=== PATIENT | male | born 1985 | race Caucasian/White ===

== ENCOUNTER 2017-08-20 12:12 | Emergency (ER) | payer OTHER ==
[2017-08-20 13:16] VITALS: BP 129/84
--- NOTE | 2017-08-20 13:47 | UC ---
Syncope/New Syncope HPI - HPI Summary HPI Summary: has had a few episodes of near syncope and then yesterday had a true syncopal episode-last week had chest pain came on and resolved spontaneously seems to have been worse with deep breathing--- - History Of Current Complaint Chief Complaint: UCDizziness Stated Complaint: FAITING SPELLS Time Seen by Provider: 08/20/17 13:38 Hx Obtained From: Patient Onset/Duration: Sudden Onset, Lasting Days Activity At Onset: Unknown Timing: Intermittent Episode Lasting Frequency: Episodes x___, Ongoing Incidents Of Syncope For (in Mins/Days/Weeks/ Years) - 1 week Context: Witnessed Associated Head Trauma: No Pain Intensity: 0 Aggravating Factor(s): Nothing Alleviating Factor(s): Nothing Associated Signs And Symptoms: Positive: Chest Pain, Numbness - Allergies/Home Medications Allergies/Adverse Reactions: Allergies Allergy/AdvReac Type Severity Reaction Status Date / Time No Known Allergies Allergy Verified 08/20/17 13:16 Home Medications: Home Medications Acetaminophen [Tylenol] 650 mg PO 08/20/17 [History] PMH/Surg Hx/FS Hx/Imm Hx Previously Healthy: Yes - Surgical History Surgical History: None - Family History Known Family History: Positive: Cardiac Disease Family History: early deaths ages 50-65, medical history not complete due to families holiness preferences - Social History Occupation: Employed Full-time - senior sous chef at [employer] Lives: With Family Alcohol Use: Daily Substance Use Type: None Smoking Status (MU): Light Every Day Tobacco Smoker Type: Cigarettes Review of Systems Constitutional: Negative Skin: Negative Eyes: Negative ENT: Negative Respiratory: Negative Cardiovascular: Chest Pain, Other - syncope Gastrointestinal: Negative Genitourinary: Negative Motor: Negative Neurovascular: Negative Musculoskeletal: Negative Neurological: Numbness, Other - syncope Psychological: Negative Is Patient Immunocompromised?: No All Other Systems Reviewed And Are Negative: Yes Physical Exam Triage Information Reviewed: Yes Appearance: Well-Appearing, No Pain Distress, Well-Nourished Vital Signs: Initial Vital Signs Temp 97.9 F 08/20/17 13:12 Pulse 72 08/20/17 13:12 Resp 18 08/20/17 13:12 BP 129/84 08/20/17 13:12 Pulse Ox 100 08/20/17 13:12 Vital Signs Reviewed: Yes Eye Exam: Normal Eyes: Positive: Conjunctiva Clear, Other: - perrla, eomi ENT Exam: Normal ENT: Positive: Normal ENT inspection, Hearing grossly normal, Pharynx normal, TMs normal. Negative: Nasal congestion, Tonsillar swelling, Tonsillar exudate, Trismus, Muffled voice, Hoarse voice, Dental tenderness, Sinus tenderness, Uvula midline Dental Exam: Normal Neck exam: Normal Neck: Positive: Supple, Nontender, No Lymphadenopathy Respiratory Exam: Normal Respiratory: Positive: Chest non-tender, Lungs clear, Normal breath sounds, No respiratory distress, No accessory muscle use Cardiovascular Exam: Normal Cardiovascular: Positive: RRR, No Murmur, Pulses Normal, Brisk Capillary Refill Abdominal Exam: Normal Abdomen Description: Positive: Nontender, No Organomegaly, Soft. Negative: CVA Tenderness (R), CVA Tenderness (L) Bowel Sounds: Positive: Present Musculoskeletal Exam: Normal Musculoskeletal: Positive: Strength Intact, ROM Intact, No Edema Neurological Exam: Normal Neurological: Positive: Alert, Muscle Tone Normal Psychological Exam: Normal Skin Exam: Normal Diagnostics - EKG Cardiac Rate: NL Cardiac Rhythm: Sinus: Normal Ectopy: None ST Segment: Non-Specific - elevations likey early repol- Syncope Course/Dx - Course Course Of Treatment: directly to emergecy department for further evaluation and higher level of care - Differential Dx/Diagnosis Provider Diagnoses: Syncope Discharge - Discharge Plan Condition: Good Disposition: OTHER Discharge Disposition Comment: by private car with GF driving to emergency department Patient Education Materials: Syncope (ED) Referrals: Leti Vann [Primary Care Provider] - Additional Instructions: We are discharging you to go directly to the hospital for further evaluation and comprehensive assesment and treatment planning
== END 2017-08-20 14:00 ==
LOC: UCEAST 12:12
DX: R55 Syncope and collapse (principal); R07.89 Other chest pain; R20.0 Anesthesia of skin; F17.210 Nicotine dependence, cigarettes, uncomplicated
CPT/HCPCS: 93005; 99201; G0463

== ENCOUNTER 2017-08-20 14:21 | Emergency (ER) | payer OTHER ==
[2017-08-20] MEDS ORDERED: Meclizine TAB* 12.5 MG PO ONE (15:29)
[2017-08-20] MEDS ORDERED: Thiamine IV* 100 MG, Folic Acid IV* 1 MG, Multiple Vitamin IV ADULT* 10 ML in NS 0.9% 1... IV ONE (15:29)
[2017-08-20 15:53] LABS: ABS Basophils 0 10^3/ul (0-0.2); ABS Eosinophils 0 10^3/ul (0-0.6); ABS Lymphocytes 1.4 10^3/ul (1.0-4.8); ABS Monocytes 0.3 10^3/ul (0-0.8); ABS Neutrophils 3.9 10^3/ul (1.5-7.7); ABS Nucleated RBC 0 10^3/ul; Eosinophil % 0.7 % (0-6); Hematocrit 46 % (42-52); Hemoglobin 15.8 g/dl (14.0-18.0); Mean Corpuscular HGB Conc 35 g/dl (31-36); Mean Corpuscular Hemoglobin 32 pg (27-31); Mean Corpuscular Volume 91 fL (80-94); Mean Platelet Volume 8 um3 (7.4-10.4); Nucleated Red Blood Cells % 0.1; Platelet Count 206 10^3/ul (150-450); Red Blood Count 5.02 10^6/ul (4.0-5.4); Red Cell Distribution Width 12 % (10.5-15); White Blood Count 5.7 10^3/ul (3.5-10.8)
[2017-08-20 16:09] LABS: EGFR Non-African American 103.8 (>60)
[2017-08-20 16:10] LABS: Urine Appearance Clear; Urine Blood 1+ (Negative); Urine Color Yellow; Urine Ketones Negative (Negative); Urine Protein Negative (Negative); Urine Specific Gravity 1.009 (1.010-1.030); Urine Urobilinogen Negative (Negative)
[2017-08-20 18:25] VITALS: BP 133/72
--- NOTE | 2017-08-21 08:43 | ED ---
Trip Herrera Thomas, scribed for Sukumar Harrell MD on 08/20/17 at 1511 . Syncope/Near Syncope - HPI Summary HPI Summary: The patient is a 31 year old male presenting to the emergency department after he had a syncopal episode yesterday. The patient was preparing food in his kitchen when the next thing he remembers he was on the floor. He had positive loss of consciousness. For the last week, the patient complains of a constant feeling of dizziness described as things are moving a little bit. This dizziness is aggravated by tilting his head back. He also complains of mild intermittent chest pain over the last week. He additionally complains of intermittent spots of numbness to his feet over the last two months. The patient denies tinnitus, cough, congestion, visual problems, diplopia, and speech difficulties. - History Of Current Complaint Chief Complaint: EDSyncope Time Seen by Provider: 08/20/17 14:27 Hx Obtained From: Patient Onset/Duration: Still Present Context: Loss Of Consciousness Activity At Onset: Other - Preparing food Associated Head Trauma: No Aggravating Factor(s): Other - Tilting head back aggravates dizziness Alleviating Factor(s): Nothing Associated Signs And Symptoms: Other - Syncope, dizziness, LOC, CP, numbness; NEGATIVE:tinnitus, cough, congestion, visual problems, diplopia, and speech difficulties. Frequency: Episodes x___ - 1 - Allergies/Home Medications Allergies/Adverse Reactions: Allergies Allergy/AdvReac Type Severity Reaction Status Date / Time No Known Allergies Allergy Verified 08/20/17 13:16 PMH/Surg Hx/FS Hx/Imm Hx Opthamlomology History: Denies: Hx Legally Blind EENT History: Denies: Hx Deafness Infectious Disease History: No Infectious Disease History: Denies: Traveled Outside the [place] in Last 30 Days - Family History Known Family History: Positive: Cardiac Disease Family History: early deaths ages 50-65, medical history not complete due to families denominational preferences - Social History Alcohol Use: Daily Alcohol Amount: 4 beers daily Substance Use Type: Reports: None Smoking Status (MU): Light Every Day Tobacco Smoker Type: Cigarettes Review of Systems Negative: Fever Negative: Diplopia, Other - visual problems Negative: Other - tinnitus Positive: Chest Pain Negative: Cough, Other - congestion Neurological: Other - Dizziness, LOC; NEGATIVE: speech changes Positive: Numbness, Syncope All Other Systems Reviewed And Are Negative: Yes Physical Exam - Summary Physical Exam Summary: Appearance: The patient is well-nourished in no acute distress and in no acute pain. Skin: The skin is warm and dry and skin color reflects adequate perfusion. HEENT: The head is normocephalic and atraumatic. The pupils are equal and reactive. The conjunctivae are clear and without drainage. Nares are patent and without drainage. Mouth reveals moist mucous membranes and the throat is without erythema and exudate. The external ears are intact. The ear canals are patent and without drainage. The tympanic membranes are intact. Neck: the neck is supple with full range of motion and non-tender. There are no carotid bruits. There is no neck vein distension. Respiratory: Chest is non-tender. Lungs are clear to auscultation and breath sounds are symmetrical and equal. Cardiovascular: Heart is regular rate and rhythm.~There is no murmur or rub auscultated.~There is no peripheral edema and pulses are symmetrical and equal. Abdomen: The abdomen is soft and non-tender. There are normal bowel sounds heard in all four quadrants and there is no organomegaly palpated. Musculoskeletal: There is no back tenderness noted. Extremities are non-tender with full range of motion. There is good capillary refill. There is no peripheral edema or calf tenderness elicited. Neurological: Patient is alert and oriented to person, place and time. The patient has symmetrical motor strength in all four extremities. Cranial nerves are grossly intact. Deep tendon reflexes are symmetrical and equal in all four extremities. Psychiatric: The patient has an appropriate affect and does not exhibit any anxiety or depression. Triage Information Reviewed: Yes Vital Signs On Initial Exam: Initial Vitals Temp Pulse Resp BP Pulse Ox 97.8 F 65 16 137/88 100 08/20/17 14:29 08/20/17 14:29 08/20/17 14:29 08/20/17 14:29 08/20/17 14:29 Vital Signs Reviewed: Yes Diagnostics - Vital Signs Vital Signs Temp Pulse Resp BP Pulse Ox 08/20/17 14:38 73 16 135/97 100 08/20/17 14:37 67 13 156/87 100 08/20/17 14:36 70 20 137/80 100 08/20/17 14:33 65 100 08/20/17 14:32 137/88 08/20/17 14:29 97.8 F 65 16 137/88 100 - Laboratory Lab Results: Lab Results 08/20/17 08/20/17 08/20/17 Range/Units 15:30 15:30 15:30 WBC 5.7 (3.5-10.8) 10^3/ul RBC 5.02 (4.0-5.4) 10^6/ul Hgb 15.8 (14.0-18.0) g/dl Hct 46 (42-52) % MCV 91 (80-94) fL MCH 32 H (27-31) pg MCHC 35 (31-36) g/dl RDW 12 (10.5-15) % Plt Count 206 (150-450) 10^3/ul MPV 8 (7.4-10.4) um3 Neut % (Auto) 69.3 (38-83) % Lymph % (Auto) 24.0 L (25-47) % [place] % (Auto) 5.5 (0-7) % Eos % (Auto) 0.7 (0-6) % Baso % (Auto) 0.5 (0-2) % Absolute Neuts (auto) 3.9 (1.5-7.7) 10^3/ul Absolute Lymphs (auto) 1.4 (1.0-4.8) 10^3/ul Absolute Monos (auto) 0.3 (0-0.8) 10^3/ul Absolute Eos (auto) 0 (0-0.6) 10^3/ul Absolute Basos (auto) 0 (0-0.2) 10^3/ul Absolute Nucleated RBC 0 10^3/ul Nucleated RBC % 0.1 Sodium 138 (133-145) mmol/L Potassium 3.8 (3.5-5.0) mmol/L Chloride 104 (101-111) mmol/L Carbon Dioxide 29 (22-32) mmol/L Anion Gap 5 (2-11) mmol/L BUN 8 (6-24) mg/dL Creatinine 0.85 (0.67-1.17) mg/dL Est GFR ( Amer) 133.5 (>60) Est GFR (Non-Af Amer) 103.8 (>60) BUN/Creatinine Ratio 9.4 (8-20) Glucose 90 (70-100) mg/dL Lactic Acid 1.0 (0.5-2.0) mmol/L Calcium 9.8 (8.6-10.3) mg/dL Magnesium 2.2 (1.9-2.7) mg/dL Total Bilirubin 0.60 (0.2-1.0) mg/dL AST 15 (13-39) U/L ALT 23 (7-52) U/L Alkaline Phosphatase 36 (34-104) U/L Troponin I 0.00 (<0.04) ng/mL Total Protein 7.5 (6.4-8.9) g/dL Albumin 5.0 (3.2-5.2) g/dL Globulin 2.5 (2-4) g/dL Albumin/Globulin Ratio 2.0 (1-3) TSH 1.33 (0.34-5.60) mcIU/mL Urine Color Urine Appearance Urine pH (5-9) Ur Specific [place] (1.010-1.030) Urine Protein (Negative) Urine Ketones (Negative) Urine Blood (Negative) Urine Nitrate (Negative) Urine Bilirubin (Negative) Urine Urobilinogen (Negative) Ur Leukocyte Esterase (Negative) Urine WBC (Auto) (Absent) Urine RBC (Auto) (Absent) Urine Bacteria (Absent) Urine Glucose (Negative) Urine Opiates Screen (None Detect) Ur Barbiturates Screen (None Detect) Ur Phencyclidine Scrn (None Detect) Ur Amphetamines Screen (None Detect) U Benzodiazepines Scrn (None Detect) Urine Cocaine Screen (None Detect) U Cannabinoids Screen (None Detect) Serum Alcohol < 10 (<10) mg/dL 08/20/17 08/20/17 Range/Units 15:50 15:50 WBC (3.5-10.8) 10^3/ul RBC (4.0-5.4) 10^6/ul Hgb (14.0-18.0) g/dl Hct (42-52) % MCV (80-94) fL MCH (27-31) pg MCHC (31-36) g/dl RDW (10.5-15) % Plt Count (150-450) 10^3/ul MPV (7.4-10.4) um3 Neut % (Auto) (38-83) % Lymph % (Auto) (25-47) % [place] % (Auto) (0-7) % Eos % (Auto) (0-6) % Baso % (Auto) (0-2) % Absolute Neuts (auto) (1.5-7.7) 10^3/ul Absolute Lymphs (auto) (1.0-4.8) 10^3/ul Absolute Monos (auto) (0-0.8) 10^3/ul Absolute Eos (auto) (0-0.6) 10^3/ul Absolute Basos (auto) (0-0.2) 10^3/ul Absolute Nucleated RBC 10^3/ul Nucleated RBC % Sodium (133-145) mmol/L Potassium (3.5-5.0) mmol/L Chloride (101-111) mmol/L Carbon Dioxide (22-32) mmol/L Anion Gap (2-11) mmol/L BUN (6-24) mg/dL Creatinine (0.67-1.17) mg/dL Est GFR ( Amer) (>60) Est GFR (Non-Af Amer) (>60) BUN/Creatinine Ratio (8-20) Glucose (70-100) mg/dL Lactic Acid (0.5-2.0) mmol/L Calcium (8.6-10.3) mg/dL Magnesium (1.9-2.7) mg/dL Total Bilirubin (0.2-1.0) mg/dL AST (13-39) U/L ALT (7-52) U/L Alkaline Phosphatase (34-104) U/L Troponin I (<0.04) ng/mL Total Protein (6.4-8.9) g/dL Albumin (3.2-5.2) g/dL Globulin (2-4) g/dL Albumin/Globulin Ratio (1-3) TSH (0.34-5.60) mcIU/mL Urine Color Yellow Urine Appearance Clear Urine pH 7.0 (5-9) Ur Specific [place] 1.009 L (1.010-1.030) Urine Protein Negative (Negative) Urine Ketones Negative (Negative) Urine Blood 1+ H (Negative) Urine Nitrate Negative (Negative) Urine Bilirubin Negative (Negative) Urine Urobilinogen Negative (Negative) Ur Leukocyte Esterase Negative (Negative) Urine WBC (Auto) Trace(0-5/hpf) (Absent) Urine RBC (Auto) Trace(0-2/hpf) (Absent) Urine Bacteria Absent (Absent) Urine Glucose Negative (Negative) Urine Opiates Screen None detected (None Detect) Ur Barbiturates Screen None detected (None Detect) Ur Phencyclidine Scrn None detected (None Detect) Ur Amphetamines Screen None detected (None Detect) U Benzodiazepines Scrn None detected (None Detect) Urine Cocaine Screen None detected (None Detect) U Cannabinoids Screen None detected (None Detect) Serum Alcohol (<10) mg/dL Result Diagrams: 08/20/17 15:30 08/20/17 15:30 Lab Statement: Any lab studies that have been ordered have been reviewed, and results considered in the medical decision making process. - EKG 15:26 Cardiac Rate: NL EKG Rhythm: Sinus Rhythm - at 59 BPM EKG Interpretation: Early repolarization. Course/Dx Course Of Treatment: Mr. Medina presented after a syncope episode yesterday and a concern for not feeling well. He feels off balance when he moves. He hasn't had any URI symptoms. He is a daily drinker of "3-4" beers a day. Here his exam was benign although he did say that something wasn't quite right when I did extraocular muscle movements. He couldn't characterize exactly what but he had no diplopia. He was kept on a monitor with no ectopy or unusual rhythm. His lab W/U was also unrevealing as was a CT. He got no relief from a dose of meclizine but after a liter 'banana bag' he was somewhat improved. I'm not sure of the etiiology of his symptoms. He may have been vagal confounded by mild dehydration that improved with fluids. He may have an early wernicke's improved with thiamine. I spoke with Dr. Landry who felt he was safe for D/C and further W/U. I recommended rest for a few days with good hydration and no ETOH. F/U with his PMD. - Diagnoses Provider Diagnoses: Weakness, Syncope - Physician Notifications Discussed Care of Patient With: Berna Landry Time Discussed With Above Provider: 17:47 Instructed by Provider To: Other - Dr. Landry, neurology, does not think there are any emergencies at this time. Discharge - Discharge Plan Condition: Stable Disposition: HOME Patient Education Materials: Syncope (ED), Weakness (ED) Referrals: Leti Vann [Primary Care Provider] - 3 Days Additional Instructions: Stay home from work and rest. Drink plenty of fluids. Refrain from alcohol. Return to work when feeling better. Follow up with your primary care physician in three days. Return to the emergency department for any new or worsening symptoms. The documentation as recorded by the Trip jacobs Thomas accurately reflects the service I personally performed and the decisions made by me, Sukumar Harrell MD.
== END 2017-08-20 18:25 | disposition home or self-care (01) ==
LOC: ED 14:21
DX: R55 Syncope and collapse (principal); R53.1 Weakness; F17.210 Nicotine dependence, cigarettes, uncomplicated
CPT/HCPCS: 36415; 80053; 80307; 80320; 81003; 81015; 83605; 83735; 84443; 84484; 85025; 93005; 96374; 99283; A9270-GY; G0480; J3411